=== PATIENT | female | born 1990 | race Caucasian/White ===

== ENCOUNTER 2020-11-06 10:42 | Emergency (ER) | payer OTHER ==
[~2020-11-06] VITALS: Ht 175.3 cm; Wt 94.6 kg
[2020-11-06] MEDS ORDERED: SODIUM CHLORIDE FLUSH 10ML SYR IVF ONE ×2 (12:00→14:00)
[2020-11-06 12:17] LABS: MICROSCOPIC NOT IND
--- NOTE | 2020-11-06 12:21 | NUR ---
PT TO ROOM FROM LOBBY.
[2020-11-06 12:25] LABS: BASOPHILS % (AUTO) 1 % (0-1); EOSINOPHILS % (AUTO) 1 % (1-7); LYMPHOCYTES % (AUTO) 25 % (22-44); MEAN CORPUSCULAR HEMOGLOBIN 29.6 pg (27.0-34.8); MONOCYTES % (AUTO) 7 % (2-9); NEUTROPHILS % (AUTO) 66 % (42-75); PLATELET COUNT 265 x10^3/uL (130-400); RED CELL DISTRIBUTION WIDTH 13.1 % (9.6-15.2)
[2020-11-06 12:40] LABS: ALBUMIN 4.1 g/dL (3.4-5.0); ANION GAP 5 mmol/L (5-15); CALCIUM 9.3 mg/dL (8.5-10.1); CHLORIDE 107 mmol/L (98-107)
[2020-11-06 12:45] LABS: ALANINE AMINOTRANSFERASE 23 U/L (12-78); ALKALINE PHOSPHATASE 71 U/L (45-117); BILIRUBIN,TOTAL 0.7 mg/dL (0.2-1.0); CREATININE 0.82 mg/dL (0.55-1.02); TOTAL PROTEIN 8.4 g/dL (6.4-8.2)
[2020-11-06] MEDS ORDERED: HYDROmorphone 2 MG/ML, 1ML IV ONE (13:30)
[2020-11-06] MEDS ORDERED: ONDANSETRON 2MG/ML, 2ML IVPush ONE ×2 (13:30→14:00)
[2020-11-06] MEDS ORDERED: HYDROmorphone 2 MG/ML, 1ML ONE (13:42)
[2020-11-06] MEDS ORDERED: ONDANSETRON 2MG/ML, 2ML ONE (13:42)
[2020-11-06] MEDS ORDERED: OMNIPAQUE 350 MG/ML, 100ML BOTTLE ONE (13:43)
[2020-11-06] MEDS ORDERED: SODIUM CHLORIDE 0.9% 1,000ML IVBOLUS ONE (14:00)
[2020-11-06 15:16] VITALS: BP 147/84
--- NOTE | 2020-11-06 15:16 | NUR ---
PT RESTING, SEEN BY MD. POC TO BE DC. PIV REMOVED. IVF COMPLETE
--- NOTE | 2020-11-06 15:55 | NUR ---
Patient given discharge instructions and they have confirmed that they understand the instructions. Patient ambulatory with steady gait.
== END 2020-11-06 15:56 | disposition home or self-care (01) ==
LOC: ED 14:50
DX: R10.31 Right lower quadrant pain (principal)
CPT/HCPCS: 36415; 74177; 80053; 81003; 83605; 84703; 85025; 96361; 96374; 96375; 99285; J1170; J2405; J7030; Q9967

== ENCOUNTER 2020-11-15 21:06 | Emergency (ER) | payer OTHER ==
[~2020-11-15] VITALS: Ht 175.3 cm; Wt 95.0 kg
[2020-11-15] MEDS ORDERED: OXYcodone/APAP 5/325MG TABLET PO ONE (21:30)
[2020-11-15] MEDS ORDERED: OXYcodone/APAP 5/325MG TABLET ONE (22:24)
[2020-11-15 22:30] VITALS: BP 133/74
[2020-11-15] MEDS ORDERED: IBUPROFEN 800 MG TABLET PO ONE (22:30)
--- NOTE | 2020-11-15 22:35 | NUR ---
TWISTER TENDER: PT SPLINT APPLIED, MEDICATED PER MAR PRIOR TO DISCHARGE, INSTURCTIONS FOR CRUTCHES AND SPLINT, ICE AND ELEVATION DONE. Patient given discharge instructions and they have confirmed that they understand the instructions. Patient ambulatory with CRUTCHES. NAD, all questions answered appropriately, denies additional needs at this time. No personal belongings left in room after discharge.
== END 2020-11-15 22:37 | disposition home or self-care (01) ==
LOC: ED 21:25
DX: S93.491A Sprain of other ligament of right ankle, initial encounter (principal); X58.XXXA Exposure to other specified factors, initial encounter; Y93.89 Activity, other specified; Y92.89 Other specified places as the place of occurrence of the external cause; Y99.8 Other external cause status
CPT/HCPCS: 99283